=== PATIENT | female | born 1995 | race African-American/Black ===

== ENCOUNTER 2019-02-23 13:19 | Emergency (ER) | payer MEDICAID ==
[~2019-02-23] VITALS: Ht 165.1 cm; Wt 60.0 kg
[2019-02-23 13:23] VITALS: BP 110/60
[2019-02-23] MEDS ORDERED: SODIUM CHLORIDE 0.9% 1,000 ML IV ONE (14:09)
[2019-02-23] MEDS ORDERED: LEVETIRACETAM 1000MG/100ML 100 ML IV ONE (14:15)
== END 2019-02-23 14:00 | disposition left against medical advice (07) ==
LOC: EDBD 13:19 → ER 13:19
DX: R56.9 Unspecified convulsions (principal)
CPT/HCPCS: 99283; J7030